=== PATIENT | female | born 1960 | race Caucasian/White ===

== ENCOUNTER 2017-09-30 08:35 | Day surgery (SDC) | payer MEDICARE ==
[~2017-09-30] VITALS: Ht 166.4 cm; Wt 63.0 kg
[~2017-09-30 08:35] MED LIST: AMBIEN5 MG PO
== END 2017-09-30 16:35 | disposition home or self-care (01) ==
LOC: CATH 08:35
DX: R07.9 Chest pain, unspecified (principal); R94.39 Abnormal result of other cardiovascular function study; I05.9 Rheumatic mitral valve disease, unspecified; Z82.49 Family history of ischemic heart disease and other diseases of the circulatory system
CPT/HCPCS: C1769; C1887; J2250; J3010; J7040